=== PATIENT | male | born 1950 | race Two or more races ===

== ENCOUNTER 2025-01-13 18:07 | Inpatient (IN) | payer OTHER, MEDICARE, MEDICAID ==
[~2025-01-13] VITALS: Ht 165.1 cm; Wt 60.4 kg
[2025-01-13 19:00] VITALS: O2SAT 94
[2025-01-13 19:26] LABS: Mean Corpuscular Hemoglobin 25.6 pg (28.0-32.0)
[2025-01-13 19:27] LABS: Hematocrit 41.2 % (41.0-53.0); Hemoglobin 13.7 g/dL (13.5-17.5); Mean Corpuscular Volume 77.1 fL (80.0-100.0); Nucleated Red Blood Cells % 0.1 %
--- NOTE | 2025-01-13 19:30 | ED.PDOC ---
Musculoskeletal HPI Comments HPI: Poor Historian. Patient is resident at [facility] and has a history of dementia Patient is not on blood thinners at this time Reports suggest that the patient was sent to the ER for evaluation of bilateral leg swelling. Past medical history: Lack of coordination, Parkinson's, TIA, dementia, anxiety, frequent falls, Surgical history: Unknown Medications: Unknown Social history: Unknown Allergies: Unknown REVIEW OF SYSTEMS: CONSTITUTIONAL: Denies acute: fever, diaphoresis, chills, generalized weakness. HEAD: Denies acute: headache, photophobia Eyes: Denies acute: Double vision, vision loss, eye pain, eye discharge. EARS: Denies acute: tinnitus, hearing loss, ear discharge, ear pain, THROAT: Denies acute: sore throat, swelling, difficulty swallowing , pain with swallowing, change in voice. NECK: Denies acute: neck pain, neck swelling, stiff neck. HEART: Denies acute : chest pain, palpitations, LUNGS: Denies acute: SOB, wheezing, cough, hemoptysis ABDOMEN: Denies acute: abdominal pain, Nausea, Vomiting, diarrhea, melena , hematemesis, hematochezia SKIN: Denies acute: rash, redness, lesions, itchiness. EXTREMITIES: Denies acute: calf pain, numbness, tingling, weakness, Denies acute: Low back pain. Neuro: Denies acute: focal neurological deficit, motor or sensory focal neurological deficit, tremors, seizure like activity, confusion, dizziness, change in mental status, loss of bowel or bladder function, cauda equina like symptoms. : Denies acute: dysuria, hematuria, flank pain, increase in urinary frequency. PSYCH: Denies acute: hallucination, suicidal ideation, homicidal ideation. PHYSICAL EXAM: General: ----no----acute distress, awake and alert. Head: normocephalic, atraumatic. Neck: supple, trachea is midline, no swelling. Throat: Normal phonation. Eyes:, no erythema, no purulent discharge, no proptosis, no icterus. Heart: regular rate, regular rhythm, no significant murmur appreciated. Lungs: no apparent respiratory distress, Able to speak in full sentences. No wheezing, no rhonchi, no crackles. No stridors Clear to auscultation bilaterally. Abdomen: non tender to palpation, non distended, soft, no guarding, no rebound, + bowel sounds. Neuro: Awake, Alert, oriented to name, self, , follows commands Skin: no petechia, no purpura, no cyanosis, slightly-pale, not jaundice. Lower extremities: --2/4 b/l - Pitting edema no deformity, no focal swelling, no calf TTP. Noted contractures of bilateral lower extremity. Makes eye contact. Face: no apparent facial droop. Pedal pulses are palpable. ED COURSE: DISCLAIMER: This medical document was created using an electronic medical record system with voice recognition software and computerized dictation system. Although this document has been carefully reviewed, there might still be some phonetic and typographical errors. Occasional wrong-word or "sound-alike" substitutions may have occurred due to the inherent limitations of voice recognition software. These areas are purely typographical due to imperfections of the software programs and do not reflect any compromise in the patient's medical care. Please read the chart carefully and recognize, using context, where these substitutions have occurred. Chief Complaint: Extremity Swelling Time Seen by MD: 18:24 Reviewed Notes: Charge Account Clerk Notes, Allergies Allergies: Coded Allergies: NO KNOWN ALLERGIES (Unverified , 01/13/25) Home Meds Reported Medications Pantoprazole Sodium Sesquihydr (Protonix) 40 Mg Tab, 40 MG PO DAILY, #30 TAB 01/14/25 Furosemide (Lasix) 20 Mg Tb, 1 TAB PO DAILY, #90 TAB 1 Refill 01/14/25 Buspirone Hcl (Buspirone Hcl) 10 Mg Tab, 10 MG PO TID, TAB 01/14/25 Atorvastatin Calcium (ATORVASTATIN CALCIUM) 20 Mg Tab, 1 TAB PO DAILY, #30 TAB 5 Refills 01/14/25 Levodopa W/Carbidopa (SINEMET 25/100MG) 1 Tab Tb, 1 TAB PO QID, TAB 01/14/25 Information Source: Patient, Emergency Med Personnel Mode of Arrival: EMS Brought in by: EMS Location: Bilateral Was a procedure done? Was a procedure done?: No Differential Diagnosis EXT Differential Diagnosis: Cellulitis, CHF, Deep Vein Thrombosis, Compartment Syndrome, Fracture, Sprain, Laceration, Gout, DJD, Contusion, Strain, Septic, Neurovascular injury, Arthritis, Bursitis X-Ray, Labs, Meds, VS Vital Signs Date Time Temp Pulse Resp B/P (MAP) Pulse Ox O2 Delivery O2 Flow Rate FiO2 01/13/25 21:07 94/65 01/13/25 21:00 80 24 94/65 (75) 95 01/13/25 20:00 75 01/13/25 19:00 98.7 78 20 103/71 (82) 94 98.7 01/13/25 19:00 94 Room Air* 0 21 01/13/25 18:37 97.8 89 18 134/61 98 97.8 Lab Test 01/13/25 19:00 Range/Units White Blood Count 10.4 4.4-10.8 10^3/uL Red Blood Count 5.35 4.5-5.90 10^6/uL Hemoglobin 13.7 13.5-17.5 g/dL Hematocrit 41.2 41.0-53.0 % Mean Corpuscular Volume 77.1 L 80.0-100.0 fL Mean Corpuscular Hemoglobin 25.6 L 28.0-32.0 pg Mean Corpuscular Hemoglobin Concent 33.2 32.0-36.0 g/dL Red Cell Distribution Width 17.2 H 11.8-14.3 % Platelet Count 409 140-450 10^3/uL Mean Platelet Volume 9.5 6.9-10.8 fL Neutrophils (%) (Auto) 71.3 37.0-80.0 % Lymphocytes (%) (Auto) 16.7 10.0-50.0 % Monocytes (%) (Auto) 9.3 0.0-12.0 % Eosinophils (%) (Auto) 2.3 0.0-7.0 % Basophils (%) (Auto) 0.4 0.0-2.0 % Neutrophils # (Auto) 7.4 1.6-8.6 10 ^3/uL Lymphocytes # (Auto) 1.7 0.4-5.4 10 ^3/uL Monocytes # (Auto) 1.0 0-1.3 10 ^3/uL Eosinophils # (Auto) 0.2 0-0.8 10 ^3/uL Basophils # (Auto) 0 0-0.2 10 ^3/uL Nucleated Red Blood Cells 0.1 % Erythrocyte Sedimentation Rate 47 H 0-20 mm/hr Sodium Level 138 136-145 mmol/L Potassium Level 3.3 L 3.5-5.1 mmol/L Chloride Level 96 L 98-107 mmol/L Carbon Dioxide Level 33 H 20-31 mmol/L Anion Gap 9 5-15 Blood Urea Nitrogen 12 9-23 mg/dL Creatinine 0.59 L 0.700-1.30 mg/dL Glomerular Filtration Rate Calc 102 >90 mL/min BUN/Creatinine Ratio 20.3 H 10.0-20.0 Serum Glucose 84 74-106 mg/dL Lactic Acid Level 1.5 0.4-2.0 mmol/L Calcium Level 8.9 8.7-10.4 mg/dL C-Reactive Protein High Sensitivity 4.96 H <1.0 mg/dL B-Type Natriuretic Peptide 38.22 0-100 pg/mL [place] [address] Ph: [phone] DIAGNOSTIC IMAGING Diagnostic Imaging Report : [id number] Signed PATIENT: DANA MORALESOACCT: [id number] UNIT: [id number] : 1950 LOC: ER ROOM / BED: / AGE / SEX: 74 / M ADM STATUS: REG ER SERVICE 184 ORDERING PHYSICIAN: UZIEL GABRIEL DO PROCEDURE(s): BLDVT - BiLat Lower DVT REASON: pain swelling ORDER NUMBER(s): [id number], ACCESSION NUMBER(s): [id number] LEFT LOWER EXTREMITY VENOUS DUPLEX REASON FOR EXAMINATION: Pain. Swelling. COMPARISON: None TECHNIQUE: Using real-time freeze-frame technique with a high-frequency transducer, multiple longitudinal and transverse sections were obtained. Simultaneous color flow and spectral Doppler imaging was performed. FINDINGS: Evaluation of the left lower extremity is suboptimal as the patient is contracted. The proximal portion of the femoral vein and upward could not be evaluated. The middle and distal portions of the femoral vein and the popliteal vein demonstrate normal venous compressibility is seen and flow augmentation. Color flow Doppler imaging of the visualized veins is unremarkable. There is subcutaneous edema in the left thigh. IMPRESSION: No evidence of DVT in the popliteal vein or middle - distal portions of the femoral vein. The deep veins of the more proximal lower extremity could not be evaluated due to contractures. Proximal DVT is not ruled out. ATED BY: MALDONADO GOVEA MD DICTATED DATE/TIME: 01/13/252010 SIGNED BY: MALDONADO GOVEA MD SIGNED DATE/TIME: 01/13/252010 CC: Time of 1ST Reevaluation: 21:04 (The case was discussed with the admitting team (HPI, physical exam, labs and diagnostic tests that were available at the time of disposition, ED course, treatment plan) on the phone. They agreed to admit the patient to their service and assume care of this patient from this point forward. --- JOSEFA. ) Reevaluation 1ST: N/A Patient Education/Counseling: Diagnosis, Treatment Family Education/Counseling: No Family Present Comments MDM: patient presented with the above HPI.--leg swelling----workup was initiated. patient was found with the above mentioned diagnosis. the following medications were ordered: please refer to order lists of meds and tests obtained by myself Dr. Gabriel. Patient has been observed in the ED adequate length of time to insure improv ement/stability. Escalation of care considered: Consideration of escalation to observation or admission Patient was given Lasix. Patient was admitted to the hospitalist for further evaluation and treatment of his presentation. All the reports of any imaging studies that were ordered by myself were reviewed by myself. Sepsis Sepsis Reasesment Focused Exam Orders: Laboratory Tests 01/13/25 19:00: Lactic Acid Level 1.5 Departure 1 Departure Time of Disposition: 21:05 Impression: Primary Impression: Leg pain, bilateral Additional Impression: Pitting edema Disposition: ADMITTED INPATIENT Admit to: [facility] Condition: Guarded Discharged With: Self Critical Care Note Critical Care Time?: No I personally scribed for UZIEL GABRIEL DO (JHONATAN) on 01/13/25 at 19:30. Electronically submitted by Levi Hermosillo (PETERSON). I personally scribed for UZIEL GABRIEL DO (JHONATAN) on 01/13/25 at 20:24. Electronically submitted by Levi Hermosillo (PETERSON). I personally scribed for UZIEL GABRIEL DO ([facility]) on 01/13/25 at 20:26. Electronically [facility] by [facility] I personally scribed for UZIEL GABRIEL DO ([facility]) on 01/13/25 at 20:33. Electronically submitted by Levi Hermosillo ([facility] UZIEL GABRIEL DO Jan 13, 2025 19:30
[2025-01-13 19:39] LABS: Sodium 138 mmol/L (136-145)
[2025-01-13 19:40] LABS: Anion Gap 9 (5-15); Calcium 8.9 mg/dL (8.7-10.4)
[2025-01-13 19:45] LABS: BUN/Creatinine Ratio 20.3 (10.0-20.0); Blood Urea Nitrogen 12 mg/dL (9-23); Glucose 84 mg/dL (74-106)
[2025-01-13 20:03] LABS: Carbon Dioxide 33 mmol/L (20-31); Chloride 96 mmol/L (98-107); Potassium 3.3 mmol/L (3.5-5.1)
--- NOTE | 2025-01-13 20:13 | DVH ---
LEFT LOWER EXTREMITY VENOUS DUPLEX REASON FOR EXAMINATION: Pain. Swelling. COMPARISON: None TECHNIQUE: Using real-time freeze-frame technique with a high-frequency transducer, multiple longitu dinal and transverse sections were obtained. Simultaneous color flow and spectral Doppler imaging wa s performed. FINDINGS: Evaluation of the left lower extremity is suboptimal as the patient is contracted. The pro ximal portion of the femoral vein and upward could not be evaluated. The middle and distal portions of the femoral vein and the popliteal vein demonstrate normal venous compressibility is seen and flow augmentation. Color flow Doppler imaging of the visualized veins is unremarkable. There is subcutaneous edema in th e left thigh. IMPRESSION: No evidence of DVT in the popliteal vein or middle - distal portions of the femoral vein. The deep ve ins of the more proximal lower extremity could not be evaluated due to contractures. Proximal DVT is not ruled out.
[2025-01-13] MEDS: FUROSEMIDE 40 MG/4 ML VIAL IV ONE (21:07)
--- NOTE | 2025-01-13 21:28 | DVHHP2 ---
History of Present Illness HPI Patient is resident at [facility] and has a history of dementia Patient is not on blood thinners at this time Home Meds Reported Medications Pantoprazole Sodium Sesquihydr (Protonix) 40 Mg Tab, 40 MG PO DAILY, #30 TAB 01/14/25 Furosemide (Lasix) 20 Mg Tb, 1 TAB PO DAILY, #90 TAB 1 Refill 01/14/25 Buspirone Hcl (Buspirone Hcl) 10 Mg Tab, 10 MG PO TID, TAB 01/14/25 Atorvastatin Calcium (ATORVASTATIN CALCIUM) 20 Mg Tab, 1 TAB PO DAILY, #30 TAB 5 Refills 01/14/25 Levodopa W/Carbidopa (SINEMET 25/100MG) 1 Tab Tb, 1 TAB PO QID, TAB 01/14/25 H&P Exam Vital Signs Vital Signs Date Time Temp Pulse Resp B/P (MAP) Pulse Ox O2 Delivery O2 Flow Rate FiO2 01/13/25 18:37 97.8 89 18 134/61 98 97.8 SEPSIS Sepsis Screen Date sepsis recognized/suspect: Jan 13, 2025 Time Sepsis recognized/suspect: 1809 Recent Procedure: No On Antibiotic Therapy: No Respiratory Rate >20: No Heart Rate >90: No Temp<36 C (96.8 F) or >38.3 C: No SBP <90 or MAP <65 mmHG: No New Acute Mental Status Change: No Is the patient on CPAP, BIPAP,: No Physician Orders Rotating Equipment Engineer (01/13/25 ) Bilat Lower Dvt (01/13/25 18:40) Sodium Chloride 0.9% (01/13/25 21:30) Vital Signs Date Time Temp Pulse Resp B/P (MAP) Pulse Ox O2 Delivery O2 Flow Rate FiO2 01/13/25 18:37 97.8 89 18 134/61 98 97.8 Laboratory Tests Test 01/13/25 19:00 Lactic Acid Level 1.5 mmol/L (0.4-2.0) White Blood Count 10.4 10^3/uL (4.4-10.8) Labs/Xrays Labs Test 01/13/25 19:00 Range/Units White Blood Count 10.4 4.4-10.8 10^3/uL Red Blood Count 5.35 4.5-5.90 10^6/uL Hemoglobin 13.7 13.5-17.5 g/dL Hematocrit 41.2 41.0-53.0 % Mean Corpuscular Volume 77.1 L 80.0-100.0 fL Mean Corpuscular Hemoglobin 25.6 L 28.0-32.0 pg Mean Corpuscular Hemoglobin Concent 33.2 32.0-36.0 g/dL Red Cell Distribution Width 17.2 H 11.8-14.3 % Platelet Count 409 140-450 10^3/uL Mean Platelet Volume 9.5 6.9-10.8 fL Neutrophils (%) (Auto) 71.3 37.0-80.0 % Lymphocytes (%) (Auto) 16.7 10.0-50.0 % Monocytes (%) (Auto) 9.3 0.0-12.0 % Eosinophils (%) (Auto) 2.3 0.0-7.0 % Basophils (%) (Auto) 0.4 0.0-2.0 % Neutrophils # (Auto) 7.4 1.6-8.6 10 ^3/uL Lymphocytes # (Auto) 1.7 0.4-5.4 10 ^3/uL Monocytes # (Auto) 1.0 0-1.3 10 ^3/uL Eosinophils # (Auto) 0.2 0-0.8 10 ^3/uL Basophils # (Auto) 0 0-0.2 10 ^3/uL Nucleated Red Blood Cells 0.1 % Erythrocyte Sedimentation Rate 47 H 0-20 mm/hr Sodium Level 138 136-145 mmol/L Potassium Level 3.3 L 3.5-5.1 mmol/L Chloride Level 96 L 98-107 mmol/L Carbon Dioxide Level 33 H 20-31 mmol/L Anion Gap 9 5-15 Blood Urea Nitrogen 12 9-23 mg/dL Creatinine 0.59 L 0.700-1.30 mg/dL Glomerular Filtration Rate Calc 102 >90 mL/min BUN/Creatinine Ratio 20.3 H 10.0-20.0 Serum Glucose 84 74-106 mg/dL Lactic Acid Level 1.5 0.4-2.0 mmol/L Calcium Level 8.9 8.7-10.4 mg/dL C-Reactive Protein High Sensitivity 4.96 H <1.0 mg/dL B-Type Natriuretic Peptide 38.22 0-100 pg/mL Assessment/Plan Primary Diagnosis Patient is resident at [facility] and has a history of dementia Patient is not on blood thinners at this time Reports suggest that the patient was sent to the ER for evaluation of bilateral leg swelling. Past medical history: Lack of coordination, Parkinson's, TIA, dementia, anxiety, frequent falls, Surgical history: Unknown Medications: Unknown Social history: Unknown Allergies: Unknown leg swelling/edema weakness acute on chronic CHF DVT rule out admitted to med/surg Plan discussed with: Patient RONEY RIVERO DO Jan 13, 2025 21:28
[2025-01-13] MEDS ORDERED: MORPHINE SULFATE INJ 2 MG/ml SYRG IV PRN ×2 (21:30)
[2025-01-13] MEDS ORDERED: ONDANSETRON HCL 4 MG/2 ML VIAL IV PRN (21:30)
[2025-01-13] MEDS ORDERED: DOCUSATE SOD 100 MG CAP PO PRN (21:30)
[2025-01-13] MEDS ORDERED: NITROGLYCERIN 0.4 MG SL TAB SL PRN (21:30)
[2025-01-13] MEDS ORDERED: SODIUM CHLORIDE 0.9% 250 ML IV ONE ×2 (21:30→21:45)
[2025-01-13] MEDS: SODIUM CHLORIDE 0.9% 250 ML IV ONE (21:46)
[2025-01-13] MEDS: ENOXAPARIN SOD 40 MG/0.4 ML SYRINGE SC SCH (22:10)
[2025-01-14] VITALS (7 sets, daily range): BP systolic 101–110; BP diastolic 61–81; PULSE 65–84; RESP 16–18; TEMP 97.6–98.9; O2SAT 93–98
[2025-01-14] MEDS ORDERED: PANT40TA2 PO (01:09)
[2025-01-14] MEDS ORDERED: FURO1TAB33 PO (01:09)
[2025-01-14] MEDS ORDERED: CAR25T PO (01:09)
[2025-01-14] MEDS ORDERED: BUSP10TA90 PO (01:09)
[2025-01-14] MEDS ORDERED: ATOR20TA50 PO (01:09)
[2025-01-14] MEDS: HYDROcodone-ACET 5/325MG TAB PO PRN (03:00)
[2025-01-14 06:23] LABS: Hematocrit 38.3 % (41.0-53.0); Hemoglobin 12.5 g/dL (13.5-17.5); Mean Corpuscular Hemoglobin 25.2 pg (28.0-32.0); Mean Corpuscular Volume 77.1 fL (80.0-100.0); Nucleated Red Blood Cells % 0.1 %
[2025-01-14 06:32] LABS: Alanine Aminotransferase 28 U/L (7-40); Albumin 3.2 g/dL (3.2-4.8); Alkaline Phosphatase 102 U/L (46-116); Anion Gap 11 (5-15); BUN/Creatinine Ratio 17.0 (10.0-20.0); Bilirubin, Total 0.7 mg/dL (0.2-1.0); Calcium 8.9 mg/dL (8.7-10.4); Carbon Dioxide 30 mmol/L (20-31); Glucose 98 mg/dL (74-106); Sodium 136 mmol/L (136-145); Total Protein 6.6 g/dL (5.7-8.2)
[2025-01-14 06:33] LABS: Blood Urea Nitrogen 8 mg/dL (9-23); Chloride 95 mmol/L (98-107); Potassium 2.9 mmol/L (3.5-5.1)
[2025-01-14] MEDS: POTASSIUM CHL 20 Meq TABLET PO SCH (18:05)
[2025-01-14] MEDS: FUROSEMIDE 100 MG/10ML VIAL IV SCH (18:06)
[2025-01-15] VITALS (7 sets, daily range): BP systolic 103–111; BP diastolic 66–77; PULSE 70–86; RESP 17–18; TEMP 98–98.6; O2SAT 92–96
--- NOTE | 2025-01-15 11:17 | DVHPN2 ---
Progress Note Date Seen: Jan 14, 2025 Medical Necessity Reason Pt with a Central, PICC or Fol: No Subjective Review of Systems: HEENT:Normal Objective vital signs Vital Sign Date Time Temp Pulse Resp B/P (MAP) Pulse Ox O2 Delivery O2 Flow Rate FiO2 01/14/25 12:45 98.9 70 16 104/69 (81) 98 98.9 01/14/25 08:00 Room Air* 0 21 Total Intake and Output 01/13/25 01/13/25 01/14/25 14:59 22:59 06:59 Intake Total 250 ml 120 ml Balance 250 ml 120 ml medications Current Medications Medications Dose Ordered Sig/Carlene Route Start Time Stop Time Status Last Admin Dose Admin Acetaminophen/ Hydrocodone Bitart 1 tab Q4HP PRN PO 01/13/25 21:30 01/14/25 11:01 1 TAB Ondansetron HCl 4 mg Q4HP PRN IV 01/13/25 21:30 Docusate Sodium 100 mg BIDPRN PRN PO 01/13/25 21:30 Acetaminophen 650 mg Q6HP PRN PO 01/13/25 21:30 Morphine Sulfate 2 mg Q4HPRN PRN IV 01/13/25 21:30 Enoxaparin Sodium 40 mg DAILY SC 01/13/25 21:30 01/14/25 09:40 40 MG Nitroglycerin 0.4 mg Q5MINP PRN SL 01/13/25 21:30 Morphine Sulfate 2 mg Q30M PRN IV 01/13/25 21:30 Examination: GENERAL:Normal laboratory and microbiology Laboratory Tests 01/14/25 05:11 Test 01/14/25 05:11 Range/Units Serum Glucose 98 74-106 mg/dL Microbiology Date/Time Source Procedure Growth Status 01/14/25 01:30 Nose MRSA Screen - Final Methicillin Resistant S.aureus Complete Labs and/or images reviewed: Labs reviewed by me, Image(s) reviewed by me Problem List/Assessment/Plan Problem List/Assessment/Plan Patient is resident at [facility] and has a history of dementia Patient is not on blood thinners at this time Reports suggest that the patient was sent to the ER for evaluation of bilateral leg swelling. Past medical history: Lack of coordination, Parkinson's, TIA, dementia, anxiety, frequent falls, Surgical history: Unknown Medications: Unknown Social history: Unknown Allergies: Unknown leg swelling/edema weakness acute on chronic CHF DVT rule out continue with diuretics improving Plan discussed with: Patient My Orders My Orders Orders - RONEY RIVERO DO Procedure Category Date Status Time Admit ADMIT 01/13/25 Transmitted 21:28 Code Status CODE 01/13/25 Transmitted 21:28 Hydrocodone-Acet PHA 01/13/25 In Process 5/325mg Tab ([place] 21:30 Ondansetron Hcl PHA 01/13/25 In Process (Zofran) 21:30 Docusate Sodium PHA 01/13/25 In Process Capsule (Colace 21:30 Cardiac DIET 01/14/25 Transmitted Diet-2gna,Lofat,Lochol Breakfast Condition: Serious DEBORAH 01/13/25 In Process 21:28 Acetaminophen Tablet PHA 01/13/25 In Process (Tylenol Tablet) 21:30 Morphine Sulfate PHA 01/13/25 In Process Injection 21:30 Enoxaparin Sodium PHA 01/13/25 In Process (Lovenox) 21:30 Nitroglycerin PHA 01/13/25 In Process Sublingual (Ntrostat 21:30 Morphine Sulfate PHA 01/13/25 In Process Injection 21:30 Stat Ekg For Chest DEBORAH 01/13/25 In Process Pain 21:28 Notify Md Of Changes DEBORAH 01/13/25 In Process From Base 21:28 Equipment Planner For DEBORAH 01/13/25 In Process 24 Hours 21:28 Emergency Dysrhythmia DEBORAH 01/13/25 In Process Protocol 21:28 Rhythm Strips Once DEBORAH 01/13/25 In Process Every Shift 21:28 Oxygen By Nasal RT 01/13/25 Transmitted Cannula 21:28 * Vehicle Trimmer CONS 01/14/25 Transmitted Consult 01:03 * Dietary Consult CONS 01/14/25 Transmitted 01:03 * Wound Consult CONS 01/14/25 Transmitted Pt Request For Service PT 01/14/25 Verified 15:36 Dietary Evaluation Review Comments: Nutrition Recommendation: 1) Consider ensure enlive 240ml BID if PO intake < 50% 2) Monitor PO intake, lab values, weight trend, and I/O Expected Outcomes/Goals: Intake to meet >75% estimated needs Lab values to improve Fu 3-5 days RONEY RIVERO DO Jan 14, 2025 15:37
[2025-01-15] MEDS: ACETAMINOPHEN 325 MG TAB PO PRN (17:28)
[2025-01-16] VITALS (7 sets, daily range): BP systolic 97–113; BP diastolic 65–88; PULSE 74–91; RESP 18–20; TEMP 97.6–98.6; O2SAT 4–97
[2025-01-17] VITALS (8 sets, daily range): BP systolic 82–106; BP diastolic 48–74; PULSE 69–84; RESP 17–20; TEMP 98–100.6; O2SAT 92–98
[2025-01-17] MEDS: POTASSIUM CHL 20 Meq TABLET PO ONE (13:15)
[2025-01-17] MEDS ORDERED: FURO1TAB31 PO (13:20)
--- NOTE | 2025-01-17 13:21 | DVHPN2 ---
Progress Note Date Seen: Jan 16, 2025 Medical Necessity Reason Pt with a Central, PICC or Fol: No Objective vital signs Vital Sign Date Time Temp Pulse Resp B/P (MAP) Pulse Ox O2 Delivery O2 Flow Rate FiO2 01/17/25 13:01 98.0 81 20 92/66 (75) 98 98.0 01/17/25 08:00 Room Air* 0 21 Total Intake and Output 01/16/25 01/16/25 01/17/25 15:00 23:00 07:00 Intake Total 510 ml 350 ml Balance 510 ml 350 ml medications Current Medications Medications Dose Ordered Sig/Carlene Route Start Time Stop Time Status Last Admin Dose Admin Acetaminophen/ Hydrocodone Bitart 1 tab Q4HP PRN PO 01/13/25 21:30 01/17/25 01:08 1 TAB Ondansetron HCl 4 mg Q4HP PRN IV 01/13/25 21:30 Docusate Sodium 100 mg BIDPRN PRN PO 01/13/25 21:30 Acetaminophen 650 mg Q6HP PRN PO 01/13/25 21:30 01/16/25 09:08 650 MG Morphine Sulfate 2 mg Q4HPRN PRN IV 01/13/25 21:30 Enoxaparin Sodium 40 mg DAILY SC 01/13/25 21:30 01/17/25 09:21 40 MG Nitroglycerin 0.4 mg Q5MINP PRN SL 01/13/25 21:30 Morphine Sulfate 2 mg Q30M PRN IV 01/13/25 21:30 Furosemide 60 mg BIDD IV 01/14/25 18:00 01/17/25 05:37 60 MG laboratory and microbiology Laboratory Tests 01/14/25 05:11 Test 01/14/25 05:11 Range/Units Serum Glucose 98 74-106 mg/dL Microbiology Date/Time Source Procedure Growth Status 01/14/25 01:30 Nose MRSA Screen - Final Methicillin Resistant S.aureus Complete Labs and/or images reviewed: Labs reviewed by me, Image(s) reviewed by me Problem List/Assessment/Plan Problem List/Assessment/Plan Patient is resident at [facility] and has a history of dementia Patient is not on blood thinners at this time Reports suggest that the patient was sent to the ER for evaluation of bilateral leg swelling. Past medical history: Lack of coordination, Parkinson's, TIA, dementia, anxiety, frequent falls, Surgical history: Unknown Medications: Unknown Social history: Unknown Allergies: Unknown leg swelling/edema weakness acute on chronic CHF DVT rule out continue with diuretics improving Plan discussed with: Patient My Orders My Orders Orders - RONEY RIVERO DO Procedure Category Date Status Time Potassium Er Tablet PHA 01/17/25 Logged (Klor-Con Tablet) 13:15 Dietary Evaluation Review Comments: Nutrition Recommendation: 1) Consider ensure enlive 240ml BID if PO intake < 50% 2) Monitor PO intake, lab values, weight trend, and I/O Expected Outcomes/Goals: Intake to meet >75% estimated needs Lab values to improve Fu 3-5 days RONEY RIVERO DO Jan 17, 2025 13:21
--- NOTE | 2025-01-17 13:22 | DVHDS2 ---
Discharge Summary Date of Admission Jan 13, 2025 at 21:28 Date of Discharge: Jan 17, 2025 Labs/Diagnostic Data: Laboratory Results Test 01/14/25 05:11 01/13/25 19:00 White Blood Count 11.4 10^3/uL (4.4-10.8) Red Blood Count 4.97 10^6/uL (4.5-5.90) Hemoglobin 12.5 g/dL (13.5-17.5) Hematocrit 38.3 % (41.0-53.0) Mean Corpuscular Volume 77.1 fL (80.0-100.0) Mean Corpuscular Hemoglobin 25.2 pg (28.0-32.0) Mean Corpuscular Hemoglobin Concent 32.7 g/dL (32.0-36.0) Red Cell Distribution Width 17.5 % (11.8-14.3) Platelet Count 367 10^3/uL (140-450) Mean Platelet Volume 9.7 fL (6.9-10.8) Neutrophils (%) (Auto) 76.0 % (37.0-80.0) Lymphocytes (%) (Auto) 13.6 % (10.0-50.0) Monocytes (%) (Auto) 8.7 % (0.0-12.0) Eosinophils (%) (Auto) 1.2 % (0.0-7.0) Basophils (%) (Auto) 0.5 % (0.0-2.0) Neutrophils # (Auto) 8.7 10 ^3/uL (1.6-8.6) Lymphocytes # (Auto) 1.5 10 ^3/uL (0.4-5.4) Monocytes # (Auto) 1.0 10 ^3/uL (0-1.3) Eosinophils # (Auto) 0.1 10 ^3/uL (0-0.8) Basophils # (Auto) 0.1 10 ^3/uL (0-0.2) Nucleated Red Blood Cells 0.1 % Sodium Level 136 mmol/L (136-145) Potassium Level 2.9 mmol/L (3.5-5.1) Chloride Level 95 mmol/L (98-107) Carbon Dioxide Level 30 mmol/L (20-31) Anion Gap 11 (5-15) Blood Urea Nitrogen 8 mg/dL (9-23) Creatinine 0.47 mg/dL (0.700-1.30) Glomerular Filtration Rate Calc 109 mL/min (>90) BUN/Creatinine Ratio 17.0 (10.0-20.0) Serum Glucose 98 mg/dL (74-106) Calcium Level 8.9 mg/dL (8.7-10.4) Total Bilirubin 0.7 mg/dL (0.2-1.0) Aspartate Amino Transferase (AST) 38 U/L (13-40) Alanine Aminotransferase (ALT) 28 U/L (7-40) Alkaline Phosphatase 102 U/L (46-116) Total Protein 6.6 g/dL (5.7-8.2) Albumin 3.2 g/dL (3.2-4.8) Erythrocyte Sedimentation Rate 47 mm/hr (0-20) Lactic Acid Level 1.5 mmol/L (0.4-2.0) C-Reactive Protein High Sensitivity 4.96 mg/dL (<1.0) B-Type Natriuretic Peptide 38.22 pg/mL (0-100) Other Laboratory Tests 01/14/25 05:11 Brief Hx & Hospital Course: Patient is resident at [facility] and has a history of dementia Patient is not on blood thinners at this time Reports suggest that the patient was sent to the ER for evaluation of bilateral leg swelling. Past medical history: Lack of coordination, Parkinson's, TIA, dementia, anxiety, frequent falls, Surgical history: Unknown Medications: Unknown Social history: Unknown Allergies: Unknown leg swelling/edema weakness acute on chronic CHF DVT rule out Condition at Discharge: Fair Final Diagnosis/Problems List see above Discharge Disposition: Home Discharge Instruct/Medications Diet: Cardiac 2g Na,low cholest Activity: No Restrictions, As Tolerated Scheduled Atorvastatin Calcium (Atorvastatin Calcium), 1 TAB PO DAILY, (Reported) Buspirone Hcl (Buspirone Hcl), 10 MG PO TID, (Reported) Furosemide (Lasix), 1 TAB PO DAILY, (Reported) Furosemide (Lasix), 40 MG PO DAILY Levodopa W/Carbidopa (Sinemet 25/100MG), 1 TAB PO QID, (Reported) Pantoprazole Sodium Sesquihydr (Protonix), 40 MG PO DAILY, (Reported) Discharge Statement: "Patient was advised to return to the ER or call 911 if any headaches, dizziness, shortness of breath, chest pain, abdominal pain, bleeding, fevers, or worsening of medical condition. Patient was counseled about treatment plan, medications, possible side effects, patientverbalized understanding. All questions were answered to the best of my ability. This discharge took greater then 30 minutes in planning, reviewing documentation, counseling the patient, and discussing with other team members." ASSESSMENT ASSESSMENT Assessment RONEY RIVERO DO Jan 17, 2025 13:22
[2025-01-17] MEDS: POTASSIUM EFFERVESENT TAB 25 MEQ PO ONE (15:03)
[2025-01-18] VITALS (8 sets, daily range): BP systolic 93–138; BP diastolic 58–159; PULSE 72–83; RESP 16–17; TEMP 97.8–98.7; O2SAT 91–96
[2025-01-18 02:13] LABS: Potassium 3.6 mmol/L (3.5-5.1)
[2025-01-18 02:14] LABS: Anion Gap 9 (5-15); Calcium 9.5 mg/dL (8.7-10.4)
[2025-01-18 02:15] LABS: Carbon Dioxide 33 mmol/L (20-31); Chloride 91 mmol/L (98-107); Sodium 133 mmol/L (136-145)
[2025-01-18 02:19] LABS: BUN/Creatinine Ratio 20.4 (10.0-20.0); Blood Urea Nitrogen 11 mg/dL (9-23)
[2025-01-18 02:20] LABS: Glucose 108 mg/dL (74-106)
== END 2025-01-18 21:20 | DRG 292 ==
LOC: ER 18:07 → EDBD 18:07 → OVERFLOW 21:28 → CENTRAL 23:31
PROVIDERS: ADMIT Internal Medicine; ATTEND Internal Medicine
DX: I50.33 Acute on chronic diastolic (congestive) heart failure (principal); F02.84 Dementia in other diseases classified elsewhere, unspecified severity, with anxiety; G20.A1 Parkinson's disease without dyskinesia, without mention of fluctuations; M79.605 Pain in left leg; M79.604 Pain in right leg; Z86.73 Personal history of transient ischemic attack (TIA), and cerebral infarction without residual deficits; Z79.899 Other long term (current) drug therapy
CPT/HCPCS: 36415; 80048; 80053; 83605; 83880; 85025; 85652; 86141; 87081; 93970; 96374; 97110; 97163; 97530; G0378